=== PATIENT | male | born 1960 | race Two or more races ===

== ENCOUNTER 2022-11-18 09:52 | Outpatient (REF) | payer OTHER, SELFPAY ==
[2022-11-18 10:33] LABS: MANUAL DIFF FLAG NO
[2022-11-18 10:39] LABS: Basophils Absolute Auto 0.1 X10*3/uL (0.0-0.2); Basophils Percent Auto 0.6 % (0-2); Eosinophils Absolute Auto 0.2 X10*3/uL (0.0-0.4); Hematocrit 45.5 % (42.0-52.0); Hemoglobin 15.1 g/dl (14.0-18.0); Imm Gran Abs Auto 0.02 X10*3/uL (0.00-0.03); Imm Gran Pct Auto 0.2 % (0.0-0.4); Lymphocytes Absolute Auto 2.7 X10*3/uL (1.2-4.9); Mean Corpuscular HGB Conc 33.2 g/dl (31.0-36.0); Mean Corpuscular Hemoglobin 29.6 pg (27.0-33.0); Mean Corpuscular Volume 89.2 fL (80.0-98.0); Mean Platelet Volume 9.3 fL (9.4-12.4); Monocytes Absolute Auto 0.6 X10*3/uL (0.1-1.2); Monocytes Percent Auto 7.1 % (2-11); Neutrophils Absolute Auto 4.6 x10*3/uL (2.0-8.3); Neutrophils Percent Auto 57.1 % (45-73); Platelet Count 327 X10*3/uL (160-400); Red Cell Distribution Width 12.6 % (11.0-16.0)
[2022-11-18 11:22] LABS: Alanine Aminotransferase 29 U/L (0-40); Albumin Level 4.3 g/dL (3.5-5.0); Alkaline Phosphatase 116 U/L (39-117); Anion Gap 9 (12-20); Aspartate Amino Transferase 20 U/L (5-37); Bilirubin Total 0.4 mg/dL (0.0-1.0); Blood Urea Nitrogen 12 mg/dL (9-16); Calcium 9.2 mg/dL (8.4-10.2); Carbon Dioxide 27 mmol/L (22-29); Chloride 106 mmol/L (96-108); Cholesterol 207 mg/dL; Estimated Glomerular Filt Rate > 60; Glucose Fasting 91 mg/dL (60-99); HDL Cholesterol 35 mg/dL; LDL Cholesterol Calculated 130 mg/dl; Potassium 4.3 mmol/L (3.3-5.1); Sodium 138 mmol/L (135-145); Total Protein 6.9 g/dL (6.5-8.0); Triglycerides 213 mg/dL
[2022-11-18 12:07] LABS: Prostate Specific Antigen Scr 0.62 ng/mL (<0.05-4.0)
== END 2022-11-18 09:53 | disposition home or self-care (01) ==
LOC: HO.10HDL 09:52
PROVIDERS: Visit Provider Internal Medicine
DX: Z00.00 Encounter for general adult medical examination without abnormal findings (principal); E78.1 Pure hyperglyceridemia; I10 Essential (primary) hypertension; J30.89 Other allergic rhinitis
CPT/HCPCS: 36415; 80053; 80061; 84153; 85025

== ENCOUNTER 2023-06-03 11:51 | Outpatient (REF) | payer OTHER, SELFPAY ==
[2023-06-03 14:10] LABS: Alanine Aminotransferase 31 U/L (0-40); Albumin Level 4.2 g/dL (3.5-5.0); Alkaline Phosphatase 105 U/L (39-117); Anion Gap 8 (12-20); Aspartate Amino Transferase 20 U/L (5-37); Bilirubin Total 0.5 mg/dL (0.0-1.0); Blood Urea Nitrogen 12 mg/dL (9-16); Calcium 9.4 mg/dL (8.4-10.2); Carbon Dioxide 29 mmol/L (22-29); Chloride 105 mmol/L (96-108); Cholesterol 202 mg/dL; Estimated Glomerular Filt Rate > 60; Glucose Random 93 mg/dL (60-115); HDL Cholesterol 35 mg/dL; LDL Cholesterol Calculated 131 mg/dl; Potassium 4.3 mmol/L (3.3-5.1); Sodium 138 mmol/L (135-145); Total Protein 7.2 g/dL (6.5-8.0); Triglycerides 182 mg/dL
== END 2023-06-03 11:52 | disposition home or self-care (01) ==
LOC: HO.10HDL 11:51
PROVIDERS: Visit Provider Internal Medicine
DX: Z00.00 Encounter for general adult medical examination without abnormal findings (principal)
CPT/HCPCS: 36415; 80053; 80061

== ENCOUNTER 2024-03-29 08:40 | Outpatient (REF) | payer OTHER, SELFPAY ==
[2024-03-29 11:33] LABS: Alanine Aminotransferase 25 U/L (0-40); Albumin Level 4.4 g/dL (3.5-5.0); Alkaline Phosphatase 112 U/L (39-117); Anion Gap 13 (12-20); Aspartate Amino Transferase 22 U/L (5-37); Blood Urea Nitrogen 15 mg/dL (9-16); Calcium 9.4 mg/dL (8.4-10.2); Carbon Dioxide 25 mmol/L (22-29); Chloride 105 mmol/L (96-108); Cholesterol 209 mg/dL (<200); Estimated Glomerular Filt Rate > 60; Glucose Random 94 mg/dL (60-115); HDL Cholesterol 35 mg/dL (>40); LDL Cholesterol Calculated 140 mg/dL (<100); Potassium 3.9 mmol/L (3.3-5.1); Sodium 139 mmol/L (135-145); Total Protein 7.5 g/dL (6.5-8.0); Triglycerides 173 mg/dL (<150)
== END 2024-03-29 08:41 | disposition home or self-care (01) ==
LOC: HO.10HDL 08:40
PROVIDERS: Visit Provider Internal Medicine
DX: E78.2 Mixed hyperlipidemia (principal); I10 Essential (primary) hypertension
CPT/HCPCS: 36415; 80053; 80061

== ENCOUNTER 2024-04-28 13:34 | Outpatient (REF) | payer MEDICAID, SELFPAY ==
[2024-04-28 14:48] LABS: Cholesterol 205 mg/dL (<200); HDL Cholesterol 35 mg/dL (>40); LDL Cholesterol Calculated 118 mg/dL (<100); Triglycerides 261 mg/dL (<150)
[2024-04-28 15:09] LABS: Prostate Specific Antigen Scr 0.71 ng/mL (<0.05-4.0)
== END 2024-04-28 13:35 | disposition home or self-care (01) ==
LOC: HO.LAB 13:34
PROVIDERS: PCP Internal Medicine; Visit Provider Internal Medicine
DX: Z00.00 Encounter for general adult medical examination without abnormal findings (principal); E78.2 Mixed hyperlipidemia; I10 Essential (primary) hypertension; M22.2X2 Patellofemoral disorders, left knee; N40.0 Benign prostatic hyperplasia without lower urinary tract symptoms
CPT/HCPCS: 36415; 80061; 84153; 87086

== ENCOUNTER 2025-08-05 09:59 | Outpatient (AMB) | payer MEDICAID, SELFPAY ==
--- NOTE | 2025-08-05 10:04 | A.OFFVIS_ITS ---
Vital Signs 08/05/25 10:17 Height 5 ft 6 in Weight 162 lb BMI 26.1 BP 120/82 Blood Pressure Location Lt brachial Position Sitting Pulse 60 Pulse Oximetry (%) 100 Oxygen Delivery Method Room Air Intake Visit Reasons: Colonoscopy screening Intake Note: Patient new consult for 2nd pre Colonoscopy screening. 1st Colonoscopy was at [facility] 7 yrs ago. Patient denies any GI issues for today visit. Sweat Band Separator Required: No Accompanied by: Self / Same As Patient Allergies No Known Allergies Allergy (Verified 08/05/25 10:38) Medication List - Last Reconciled 08/05/25 by Tamiko Alcazar CNP No Known Home Meds HPI HPI Colonoscopy screening: Details: Patient is a 65-year-old male with PMH of hyperlipidemia, hypertension, BPH. Referred by PCP for pre colonoscopy screening Last colonoscopy in 06/2020 completed to cecum but prep was inadequate; repeat advised after 5 yrs. Pt reports intermittent, mild constipation, self-managed, with mostly regular BM pattern and no significant frequency changes. Denies diarrhea, GI bleeding, or persistent abd pain. Reports two episodes of acute abd pain in past 3 months: one required urgent care visit, dx viral gastroenteritis with nausea, vomiting, diarrhea, fever?resolved without sequelae; second episode 3 wks ago, milder, self-resolved, no recurrence since. Appetite and wt reported as stable, though noted slight recent wt decrease possibly related to prior illness. No current or recent fever, nausea, or vomiting. No regular GI or other chronic complaints. No regular meds. Non-GI: States having sleep disturbance but not on Tx. No hx of cardiac/pulm dz, no prior anesthesia complications. Patient denies appetite changes, pyrosis, regurgitation,dysphasia, unintentional wt loss, ab pain or melena/hematochezia. Social hx: -denies ETOH use -denies recreational drug use -former smoker, cessation 20-25 years ago - family hx as below -denies personal hx of CA -denies significant cardiopulmonary history -tolerated anesthesia in the past without difficulty. PFSH Medical History (Updated 08/05/25 @ 10:43 by Tamiko Alcazar CNP) Viral gastroenteritis Constipation Colon cancer screening Family History (Updated 08/05/25 @ 10:21 by Tamiko Alcazar CNP) Father Stomach cancer Mother Breast cancer Sister Uterine cancer Social History (Updated 08/05/25 @ 10:07 by Deisi Hernández) Household Members: Family Alcohol intake: never Patient Tobacco Use Status: Never used Tobacco Substance Use Type: Marijuana Review of Systems Const Reports as per [facility] ENT Reports as per HPI Card Reports as per HPI Resp Reports as per HPI GI Reports as per HPI Reports as per HPI Physical Exam Const General: healthy appearing, no acute distress and well developed Nutritional Appearance: average body habitus Orientation/consciousness: patient oriented x3 HEENT Head: Yes normal to inspection, Yes normocephalic and Yes atraumatic Face and sinus: Yes normal facial exam Eyes General: appearance normal, both eyes and all related structures Neck Neck: Yes normal visual inspection Resp Effort & Inspection: normal respiratory effort, able to speak in complete sentences, no tracheal deviation and symmetric chest movement Cardio Jugular venous distension: no JVD Neuro General: patient oriented x3 Gait exam (Neuro): Normal gait present Psych Appearance: grossly normal Mental Status: mental status grossly normal Speech and movement: Normal speech and movement present Affect: normal affect Attitude: cooperative Thought process: Normal thought process present Thought content: Normal thought content present Insight: Good insight present (Psych) Judgement: Good judgement present (Psych) Assessment & Plan Assessment & Plan (1) Colon cancer screening: Comment: 06/20/20 colonoscopy (Dr. Banuelos) complete with good to fair prep - 2+ internal hemorrhoids. Recommendations for repeat in five years ( 2024) with stool based testing in the interim. Code(s): Z12.11 - Encounter for screening for malignant neoplasm of colon Category: Medical Plan: Prior colonoscopy to cecum but poor prep; repeat at 5 yrs per guidelines. Additional Testing: None indicated pre-procedure Medication Management: Prescribed GoLYTELY (PEG), bisacodyl tablets, simethicone as prep per protocol. Lifestyle Recommendations: -Begin clear liquid diet 2 days prior to procedure; reinforce importance of good hydration and strictly adhering to prep for optimal visualization. Avoid red/blue/purple liquids or food. -Patient educated on scheduling process, procedure preparation, including avoiding certain foods and ensuring clear liquid intake -Advised on necessity for ride post-procedure due to sedation. Follow-Up: In-person post-procedure appt to review results; will also receive letter if results are normal. Next interval will depend on findings. (2) Constipation: Code(s): K59.00 - Constipation, unspecified Category: Medical Qualifiers: Constipation type: unspecified constipation type Qualified Code(s): K59.00 - Constipation, unspecified Plan: Occasional, mild constipation likely contributing to internal hemorrhoids noted on prior colonoscopy. Additional Testing: None indicated at this time. Medication Management: None started. Lifestyle Recommendations: Increase fiber (fruits, vegetables, legumes), adequate hydration, regular physical activity. Follow-Up: Monitor sxs; contact GI if constipation worsens or new sxs (e.g., GI bleeding, significant abd pain) develop. (3) Viral gastroenteritis: Code(s): A08.4 - Viral intestinal infection, unspecified Category: Medical Plan: Self-limited episode with complete recovery. Additional Testing: None. Medication Management: None needed. Lifestyle Recommendations: None; routine monitoring. Follow-Up: None required unless recurrence. Plan Follow-up after colonoscopy or sooner as needed Time: I spent a total of 30 minutes on the date of encounter which includes: Preparing to see the patient (reviewed previous documentation, test results and medical history)yyyy Ordering medications, tests, and proceduresyyyyyyyy Documenting clinical information in the health record Orders: Referrals GI Procedure Notification Z12.11 - Encounter for screening for malignant neoplasm of colon Medications: New simethicone (Gas Relief (simethicone)) per colonoscopy prep instructions 125 mg PO ONCE 4 caps 0RF abdominal distention bisacodyl Take per colonoscopy instructions 5 mg PO ONCE 4 tabs 0RF peg 3350-electrolytes [id number] -5.86 gram until fecal effluent is clear 240 mL PO Q10M 4,000 mL 0RF Coding Level of Care Code New Pt New Pt Level 3 (15497) Patient Type New Diagnoses Colon cancer screening Z12.11 Constipation, unspecified constipation type K59.00 Constipation type: unspecified constipation type Viral gastroenteritis A08.4
[2025-08-05 10:17] VITALS: BP 120/82; PULSE 60; O2SAT 100; BMI 26.1
== END 2025-08-05 10:30 | disposition home or self-care (01) ==
LOC: HO.HGI 09:59
PROVIDERS: PCP Internal Medicine; Visit Provider Nurse Practitioner Family
DX: Z01.818 Encounter for other preprocedural examination (principal); Z12.11 Encounter for screening for malignant neoplasm of colon; K59.00 Constipation, unspecified; A08.4 Viral intestinal infection, unspecified
CPT/HCPCS: 99203

== ENCOUNTER → 2025-08-05 09:59 | Outpatient (BNVA) | payer MEDICAID, SELFPAY | PROVIDERS: PCP Internal Medicine; Visit Provider Nurse Practitioner Family | DX: Z01.818 Encounter for other preprocedural examination (principal); K59.00 Constipation, unspecified | CPT/HCPCS: 99212 ==

== ENCOUNTER 2025-10-25 09:49 | Day surgery (SDC) | payer OTHER, SELFPAY ==
--- NOTE | 2025-10-24 13:06 | HO.ANESPROP2 ---
Documented by User: Kathy Rashid NP 10/24/25 13:06 HPI - Anesthesia Eval Consult details Narrative: 65 yr old male for colonoscopy High triglycerides: >250 in 2023 [facility] Active Problems Active Problems: All Active Problems (Updated 08/05/25 @ 10:43 by Tamiko Alcazar CNP) Viral gastroenteritis (Acute) Constipation (Acute) Colon cancer screening (Acute) Past Medical History Medical History Viral gastroenteritis Constipation Colon cancer screening Family History Family History (Updated 08/05/25 @ 10:21 by Tamiko Alcazar CNP) Father Stomach cancer Mother Breast cancer Sister Uterine cancer Surgical History Surgical History (Updated 10/25/25 @ 11:23 by Jenn Choudhary RN) Hx of colonoscopy Social History Social History (Updated 08/05/25 @ 10:07 by Deisi Hernández) Household Members: Family Are you a primary health care assistant to a significant other at home: No Do you presently have visiting nurse or other home services: No Alcohol intake: never Patient Tobacco Use Status: Never used Tobacco Substance Use Type: Marijuana Meds Allergies Allergy/AdvReac Type Severity Reaction Status Date / Time No Known Allergies Allergy Verified 10/25/25 11:09 Home Medications ?Medication ?Instructions ?Recorded ?Confirmed ?Last Taken ?Type No Known Home Meds 10/25/25 10/25/25 Unknown History Documented by User: Anish Murillo MD 10/25/25 16:39 [facility] Past Medical History Medical History Viral gastroenteritis Constipation Colon cancer screening Family History Family History (Updated 08/05/25 @ 10:21 by Tamiko Alcazar CNP) Father Stomach cancer Mother Breast cancer Sister Uterine cancer Family history of problems with anesthesia: No Surgical History Surgical History (Updated 10/25/25 @ 11:23 by Jenn Choudhary RN) Hx of colonoscopy History of Problems with Anesthesia: No Social History Social History (Updated 08/05/25 @ 10:07 by Deisi Hernández) Household Members: Family Are you a primary health care assistant to a significant other at home: No Do you presently have visiting nurse or other home services: No Alcohol intake: never Patient Tobacco Use Status: Never used Tobacco Substance Use Type: Marijuana Meds Allergies Allergy/AdvReac Type Severity Reaction Status Date / Time No Known Allergies Allergy Verified 10/25/25 11:09 Home Medications ?Medication ?Instructions ?Recorded ?Confirmed ?Last Taken ?Type No Known Home Meds 10/25/25 10/25/25 Unknown History Assessment and Plan Assessment Anesthesia Assessment: Anesthesia Plan Discussed and Chart Reviewed Final Anesthetic Review Family History of Problems with Anesthesia: No History of Problems with Anesthesia: No NPO: Yes ASA Class: I Final Preanesthetic Review: No Changes in Pt Med Stat, Meds/Allgs Chart Reviewed, Consent Obtained/Reviewed and Anes Risks/Benef Reviewed Patient Risk: Low Procedure Risk: Low Anesthetic Plan Anesthetic Plan: MAC: Disposition: Standard PACU
[2025-10-25 11:04] VITALS: BMI 27.4
[2025-10-25] MEDS: Lactated Ringers 1,000 ML 100 ML IVCONT (11:20)
[2025-10-25 11:22] VITALS: BP 139/88; PULSE 71; RESP 18; TEMP 36.7; O2SAT 97
--- NOTE | 2025-10-25 11:58 | MHC.SHP ---
Pre-Procedural Eval Section A - 24 Hr Update-Section A only Date of Service: 10/25/25 Section B - Complete if H&P > 30 days Chief Complaint: screening Details of Present Illness: Viral gastroenteritis Constipation Colon cancer screening Family History (Updated 08/05/25 @ 10:21 by Tamiko Alcazar CNP) Father Stomach cancer Mother Breast cancer Sister Uterine cancer Present Medications: see Short Stay Collaborative assessment Allergies: Allergies Allergy/AdvReac Type Severity Reaction Status Date / Time No Known Allergies Allergy Verified 10/25/25 11:09 Review of Systems Review of Systems Comment: Ten point ROS negative Exam Exam Comment: Gen appear: No acute distress HEENT: no icterus Chest: No overt resp distress Abd: soft, nontender, nondistended Psych: Stable affect, answering questions appropriately Neuro: A/Ox3 noted to move all extremities spontaneously Ext: no peripheral edema Plan Diagnosis/Plan: Unchanged I have reviewed the history and physical and performed a pertinent physical examination on my patient. No changes have occurred unless specified. Time Spent With Patient Time: Total time managing care of this patient today ____ minutes.
--- NOTE | 2025-10-25 13:31 | P.OPN-COLO_ITS ---
Colonoscopy Operative Note Operative Note Date of Service: 10/25/25 Narrative: Procedure: Colonoscopy Indication: Screening Endoscopist: Luisa Driscoll MD Anesthesia Provider: Gerardo Bey CRNA Anesthesia type: MAC Instrument: Olympus [id number]-H190L Consent: Indication, risks vs benefits, and alternatives were discussed with the patient who gave written informed consent to proceed. EKG, pulse, pulse oximetry and blood pressure were monitored throughout the procedure. Please see anesthesia flowsheet. Procedure: The patient was brought to the procedure room and placed in the left lateral decubitus position. IV medications were administered by the anesthesia provider in attendance. A digital rectal exam was performed which was normal. A distal attachment cap was affixed to the tip of the colonoscope which was then inserted through the anus and advanced through the colon to the cecum at 80 cm,and terminal ileum. Appendiceal orifice and ileocecal valve were identified. Mucosa was carefully examined under high definition white light as the instrument was slowly withdrawn in a retrograde panoramic fashion. Retroflexion was performed in rectum. The procedure was not difficult. There were no immediate obvious complications. The quality of the prep was BBPS: 2+3+3 = adequate Withdrawal time 13 minutes. Limitations: No limitations. Findings: Mucosa: Normal to cecum and terminal ileum. Protruding lesions: * Medium internal hemorrhoids without stigmata of recent bleeding. Impression: 1. Normal colon and terminal ileum mucosa 2. Internal hemorrhoids Recommendations: - Repeat colonoscopy for asymptomatic colorectal screening in 10 years. - Given family history of stomach cancer, pt should be booked for a one-time upper endoscopy. This was discussed with the pt and he was advised to review this with PCP and GI provider.
[2025-10-25 13:32] VITALS: BP 114/67; PULSE 79; RESP 16; TEMP 36.3; O2SAT 95
[2025-10-25 13:47] VITALS: BP 108/69; PULSE 69; RESP 15; O2SAT 95
[2025-10-25 14:03] VITALS: BP 108/72; PULSE 72; RESP 19; O2SAT 98
[2025-10-25 14:18] VITALS: BP 134/82; PULSE 69; RESP 19; O2SAT 99
[2025-10-25 14:33] VITALS: BP 144/90; PULSE 70; RESP 20; TEMP 37.5; O2SAT 99
== END 2025-10-25 15:02 | disposition home or self-care (01) ==
PROVIDERS: PCP Internal Medicine; Visit Provider Internal Medicine
PROC: 0DJD8ZZ Inspection of Lower Intestinal Tract, Via Natural or Artificial Opening Endoscopic (ICD-10-PCS; CPT 45378; principal; 2025-10-25 12:20)
DX: Z12.11 Encounter for screening for malignant neoplasm of colon (principal); Z80.0 Family history of malignant neoplasm of digestive organs; K59.00 Constipation, unspecified; A08.4 Viral intestinal infection, unspecified
CPT/HCPCS: 45380; J2704

== ENCOUNTER → 2025-10-25 09:49 | Outpatient (BNV) | payer OTHER, SELFPAY | PROVIDERS: PCP Internal Medicine; Visit Provider Internal Medicine | DX: Z12.11 Encounter for screening for malignant neoplasm of colon (principal); K64.8 Other hemorrhoids | CPT/HCPCS: 45378 ==